=== PATIENT | female | born 2005 | race Caucasian/White ===

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

== ENCOUNTER 2024-06-04 11:25 | Emergency (ER) | payer MEDICAID ==
[~2024-06-04] VITALS: Ht 165.1 cm; Wt 61.9 kg
[~2024-06-04 11:25] MED LIST changes: +ALBU6.7H14 INH; -ALBU6.7H9 INH; +ONDA-243 PO
[2024-06-04 11:37] VITALS: BP 131/79; PULSE 72; RESP 18; TEMP 97.2; O2SAT 99
[2024-06-04] MEDS ORDERED: PRED10TA23 PO (13:29)
[2024-06-04] MEDS: triamcinolone acet 0.1% cream 15gm TP ONE (13:59)
== END 2024-06-04 14:02 | disposition home or self-care (01) ==
LOC: ER 11:25
DX: L50.8 Other urticaria (principal); L30.8 Other specified dermatitis; Z79.1 Long term (current) use of non-steroidal anti-inflammatories (NSAID); Z79.52 Long term (current) use of systemic steroids; Z79.899 Other long term (current) drug therapy
CPT/HCPCS: 99283

== ENCOUNTER 2024-06-19 07:14 | Emergency (ER) | payer MEDICAID ==
[~2024-06-19] VITALS: Ht 165.1 cm; Wt 65.9 kg
[2024-06-19 07:22] VITALS: TEMP 98
[2024-06-19] MEDS ORDERED: [UNRECOGNIZED DRUG - CODE] TP (07:47)
[2024-06-19] MEDS ORDERED: HYDR-3686 PO (07:47)
[2024-06-19 07:52] VITALS: BP 129/83; PULSE 81; RESP 15; O2SAT 99
== END 2024-06-19 07:58 | disposition home or self-care (01) ==
LOC: ER 07:15
DX: L30.9 Dermatitis, unspecified (principal); Z79.899 Other long term (current) drug therapy
CPT/HCPCS: 99283

== ENCOUNTER 2024-09-27 08:41 | Emergency (ER) | payer SELFPAY ==
[~2024-09-27] VITALS: Ht 165.1 cm; Wt 61.0 kg
[~2024-09-27 08:41] MED LIST changes: +HYDR-3686 PO; +[UNRECOGNIZED DRUG - CODE] TP
[2024-09-27] MEDS ORDERED: DOXY-225 PO (09:46)
[2024-09-27] MEDS: CefTRIAXone 1000mg IM Kit (w/lidocaine diluent) IM STA (09:47)
[2024-09-27] MEDS ORDERED: KEN0.1O TOP (09:47)
[2024-09-27 09:54] VITALS: BP 113/80; PULSE 68; RESP 16; TEMP 98.7; O2SAT 100
[2024-09-29 11:11] LABS: CHLAMYDIA TRACHOMATIS, NAA Negative (Negative)
== END 2024-09-27 09:59 | disposition home or self-care (01) ==
LOC: ER 08:41
DX: L30.9 Dermatitis, unspecified (principal); L01.00 Impetigo, unspecified; N89.8 Other specified noninflammatory disorders of vagina
CPT/HCPCS: 36415; 87491; 87591; 96372; 99284; J0696; Q0112